=== PATIENT | female | born 1970 | race Caucasian/White ===

== ENCOUNTER 2017-11-24 14:33 | Inpatient (IN) | payer OTHER ==
[2017-11-24 14:39] VITALS: BMI 26.5
--- NOTE | 2017-11-24 14:41 | PDOC ---
Rapid Medical Evaluation Chief Complaint: Syncope/Near Syncope Time Seen by Provider: 11/24/17 14:40 Medical Evaluation: Allergies Allergy/AdvReac Type Severity Reaction Status Date / Time No Known Drug Allergies Allergy Verified 02/23/16 11:29 Vital Signs Temp Pulse Resp BP Pulse Ox 48 L 20 120/75 99 11/24/17 14:36 11/24/17 14:36 11/24/17 14:36 11/24/17 14:36 11/24/17 14:40 Pt presents to the ED: chest pain, syncope, nausea On brief exam: kevin at 47, diaphoretic and vomiting Pt ordered for: go directly to the ED Discharge Disposition - Diagnosis Chest pain - Referrals - Patient Instructions - Post Discharge Activity
[2017-11-24] MEDS ORDERED: ONDANSETRON 4 MG/2 ML VIAL ONE (15:00)
[2017-11-24] MEDS ORDERED: SODIUM CHLORIDE 0.9% 1000 ML INFUS.BAG IV STA (15:01)
[2017-11-24 15:19] LABS: BASO % 0.5 % (0-2.0); EOS % 1.6 % (0-4.5); HEMATOCRIT 40.7 % (32.4-45.2); HEMOGLOBIN 13.4 GM/dL (10.7-15.3); LYMPH % 39.7 % (8-40); MCH 28.5 pg (25.7-33.7); MCHC 32.8 g/dl (32.0-36.0); MEAN CELL VOLUME 86.9 fl (80-96); MEAN PLT VOLUME 9.6 fl (7.5-11.1); MONO % 5.2 % (3.8-10.2); PLATELET COUNT 449 K/MM3 (134-434); RBC 4.69 M/mm3 (3.60-5.2); RDW 15.4 % (11.6-15.6); WHITE BLOOD COUNT 10.2 K/mm3 (4.0-10.0)
--- NOTE | 2017-11-24 15:20 | PDOC ---
History of Present Illness - General Chief Complaint: Syncope/Near Syncope Stated Complaint: COLD/ FACE NUMBNESS Time Seen by Provider: 11/24/17 14:40 History Source: Patient Exam Limitations: No Limitations - History of Present Illness Initial Comments: 11/24/17 15:04 The patient is a 46F with no PMH who presents to the ED after having a near syncopal episode. The patient is with her who provides most of the history. The states that the patient and he were outside for 30-40 minutes today as the was doing outdoor work. He noticed that the patient 's face became very wrinkly "like an old woman" and he decided to bring her to the ED. He states that her face became less wrinkled as they arrived to the ED. In the ED, she began to feel lightheaded and became pale, then had a near syncopal episode and vomited once. She denies any CP, abd pain, SOB but says she 's weak and nauseous. Past History - Past Medical History Allergies/Adverse Reactions: Allergies Allergy/AdvReac Type Severity Reaction Status Date / Time No Known Drug Allergies Allergy Verified 02/23/16 11:29 Home Medications: Ambulatory Orders NK [No Known Home Medication] 11/24/17 Anemia: No Asthma: Yes Cancer: No Cardiac Disorders: No CVA: No COPD: No CHF: No Dementia: No Diabetes: Yes (? DIABETES) GI Disorders: No Disorders: No HTN: No Hypercholesterolemia: No Liver Disease: No Seizures: No Thyroid Disease: No - Suicide/Smoking/Psychosocial Hx Smoking History: Never smoked Have you smoked in the past 12 months: No Hx Alcohol Use: No Drug/Substance Use Hx: No Substance Use Type: None Hx Substance Use Treatment: No Review of Systems - Review of Systems Able to Perform ROS?: Yes Comments:: 11/24/17 15:38 GENERAL/CONSTITUTIONAL: No fever or chills. No weakness. HEAD, EYES, EARS, NOSE AND THROAT: No change in vision. No ear pain or discharge. No sore throat. GASTROINTESTINAL: Positive for nausea and vomiting. No diarrhea, constipation, or abdominal pain. GENITOURINARY: No dysuria, frequency, hematuria, or change in urination. CARDIOVASCULAR: No chest pain, palpitations, or lightheadedness. RESPIRATORY: No cough, wheezing, shortness of breath, or hemoptysis. MUSCULOSKELETAL: No joint or muscle swelling or pain. No neck or back pain. SKIN: No rash or lesions. NEUROLOGIC: No headache, numbness, tingling, weakness, loss of consciousness, or change in strength/sensation. ENDOCRINE: No increased thirst. No abnormal weight change. HEMATOLOGIC/LYMPHATIC: No anemia, easy bleeding, or history of blood clots. ALLERGIC/IMMUNOLOGIC: No hives or skin allergy. Is the patient limited Turkish proficient: No *Physical Exam - Vital Signs Last Vital Signs Temp Pulse Resp BP Pulse Ox 48 L 20 120/75 99 11/24/17 14:36 11/24/17 14:36 11/24/17 14:36 11/24/17 14:36 ED Treatment Course - LABORATORY CBC & Chemistry Diagram: 11/24/17 15:00 11/24/17 15:00 - RADIOLOGY Radiology Studies Ordered: Category Date Time Status HEAD CT WITHOUT CONTRAST [CT] Stat CT Scan 11/24/17 15:01 Ordered CHEST X-RAY PORTABLE* [RAD] Stat Radiology 11/24/17 15:01 Ordered Medical Decision Making - Medical Decision Making 11/24/17 16:13 The patient is a 46F with no PMH who presents to the ED after having an episode of facial spasm and near syncope with vomiting. I am concerned for a seizure/ neurologic pathology causing her presentation. She was hypothermic at 96.0F, septic protocol is being followed in addition to a head CT. Lactate of 3.8. CK of 851. Will hydrate the patient and page Dr. Andujar. 11/24/17 16:46 Dr. Bazzi has accepted admission for a [facility] bed. *DC/Admit/Observation/Transfer Diagnosis at time of Disposition: Chest pain - Discharge Dispostion Admit: Yes - Referrals Referrals: Master Andujar MD [Primary Care Provider] - - Patient Instructions - Post Discharge Activity
[2017-11-24] MEDS ORDERED: SODIUM CHLORIDE 0.9% 1000 ML INFUS.BAG IV ONE ×2 (15:23→16:16)
[2017-11-24] MEDS ORDERED: ONDANSETRON 4 MG/2 ML VIAL IVPUSH ONE (15:23)
[2017-11-24 15:47] LABS: INR 1.08 (0.82-1.09); PROTHROMBIN TIME (PATIENT) 12.2 SEC (9.98-11.88)
[2017-11-24 15:49] LABS: ACTIVATED PTT 25.4 SECONDS (26.9-34.4)
[2017-11-24 15:49] LABS: ALBUMIN 3.4 g/dl (3.4-5.0); ANION GAP 8 (8-16); BILIRUBIN,TOTAL 0.2 mg/dL (0.2-1.0); BLOOD UREA NITROGEN 16 mg/dL (7-18); CALCIUM 8.6 mg/dL (8.5-10.1); CHLORIDE 108 mmol/L (98-107); CO2 24 mmol/L (21-32); CREATININE 0.9 mg/dL (0.55-1.02); GLUCOSE,RANDOM 118 mg/dL (74-106); POTASSIUM 3.3 mmol/L (3.5-5.1); SGOT/AST 22 U/L (15-37); SGPT/ALT 19 U/L (12-78); SODIUM 140 mmol/L (136-145); TOT PROT 6.8 g/dl (6.4-8.2)
[2017-11-24 15:51] LABS: ALK PHOS 65 U/L (45-117)
--- NOTE | 2017-11-24 16:18 | PDOC ---
Attending Attestation - HPI HPI: 11/24/17 16:34 The patient is a 46 year old female with no significant PMH of who presents to the emergency department with generalized weakness and mild nausea s/p near syncopal episode on arrival. The patient's is at bedside and is providing the history. The patient's states he was outside with the patient for approximately 40 minutes when he noticed the patient's face started getting wrinkly "like a 61-year old woman" prompting their visit to the ER. The patient's reports the wrinkles on the face have resolved upon arrival. The patient's states the patient looked pale, felt lightheaded and had a near syncopal episode with an associated episode of nonbloody, nonbilious emesis on arrival. The patient's states the patient was moving all her extremities normally and had no postictal episode. The patient denies chest pain, shortness of breath, and headache. Denies fever, chills, nausea, vomit, diarrhea and constipation. Denies dysuria, frequency, urgency and hematuria. Allergies: NKA Past surgical history: None reported. Social history: No reported alcohol, cigarette or drug use. PCP: Dr. Andujar - Physicial Exam PE: 11/24/17 16:39 Vitals: Triage vital signs reviewed General Appearance: (+) Generalized weakness. well nourished, well developed Head: Atraumatic Eyes: Pupils equal reactive round, extraocular movement intact Neck: Supple; No nuchal rigidity Chest Wall: Nontender Cardiac: Regular rate and rhythm, no murmurs, no rubs, no gallops Lungs: Clear to auscultation bilateral, good air movement bilaterally Abdomen: Soft, nondistended, normal bowel sounds, nontender to palpation Extremities: Full range of motion to all extremities, no cyanosis, clubbing, or edema Skin: Warm and dry, no rashes or lesions, no rash, no petechiae Neuro: AOX3; Cranial Nerves 2-12 grossly intact, Strength intact to all extremities, Sensation intact to all extremities. Psych: Normal mood, normal affect - Medical Decision Making 11/24/17 16:40 The patient is a 46 year old female with no significant PMH of who presents to the emergency department with generalized weakness and mild nausea s/p syncopal episode on arrival. Plan Labs: Cardiac profile, CK index, CK MB, CMP, Lactic, UA ABG: Venous blood gas Cardio: EKG Meds: Zofran, Normal saline Microbio: Blood culture, Urine culture Respiratory: Oxygen therapy Nasal Cannula <Magdalene Conde - Last Filed: 11/24/17 16:44> - Resident Resident Name: YoshaiHector - ED Attending Attestation I have performed the following: I have examined & evaluated the patient, The case was reviewed & discussed with the resident, I agree w/resident's findings & plan, Exceptions are as noted - Medical Decision Making Patient with episode of syncope versus seizure. Prior to episode per her face became contorted/ ? red rash to face. Laboratory analysis significant for elevated lactic and elevated CK. This may be secondary to seizure-like activity, or it may be a vagal episode 2/2 cold anaphylaxis. Currently complaining of generalized weakness Head CT with no acute findings We'll hydrate and admitted to medicine for further management. 11/25/17 15:10 <Domenic Calderon - Last Filed: 11/25/17 15:29>
[2017-11-24 16:51] LABS: URINE APPEARANCE CLEAR; URINE BILIRUBIN NEGATIVE (NEGATIVE); URINE BLOOD 1+ (NEGATIVE); URINE COLOR LTYELLOW; URINE GLUCOSE (UA) NEGATIVE (NEGATIVE); URINE KETONE NEGATIVE (NEGATIVE); URINE NITRITE NEGATIVE (NEGATIVE); URINE PROTEIN NEGATIVE (NEGATIVE); URINE UROBILINOGEN NEGATIVE mg/dL (0.2-1.0)
[2017-11-24 17:04] LABS: URINE LEUK ESTERASE 1+ (NEGATIVE)
[2017-11-24 17:25] LABS: EPI CELLS RARE /HPF (FEW); URINE BACTERIA FEW /hpf (NONE SEEN); URINE HYALINE CAST 6 /lpf; URINE MUCUS RARE
[2017-11-24] MEDS ORDERED: ONDANSETRON 4 MG/2 ML VIAL IVPUSH PRN (22:38)
[2017-11-25] MEDS: DEXTROSE 5%-0.45% SALINE 1,000 ML IV SCH ×2 (01:00→22:06)
[2017-11-25 08:33] LABS: BASO % 0.4 % (0-2.0); EOS % 1.7 % (0-4.5); HEMATOCRIT 31.8 % (32.4-45.2); HEMOGLOBIN 10.3 GM/dL (10.7-15.3); LYMPH % 20.1 % (8-40); MCH 28.2 pg (25.7-33.7); MCHC 32.5 g/dl (32.0-36.0); MEAN CELL VOLUME 86.9 fl (80-96); MEAN PLT VOLUME 9.6 fl (7.5-11.1); MONO % 5.4 % (3.8-10.2); NEUT % 72.4 % (42.8-82.8); PLATELET COUNT 306 K/MM3 (134-434); RBC 3.66 M/mm3 (3.60-5.2); RDW 15.6 % (11.6-15.6); WHITE BLOOD COUNT 9.9 K/mm3 (4.0-10.0)
[2017-11-25 08:46] LABS: ALBUMIN 3.2 g/dl (3.4-5.0); ANION GAP 9 (8-16); BLOOD UREA NITROGEN 7 mg/dL (7-18); CHLORIDE 109 mmol/L (98-107); CO2 24 mmol/L (21-32); CREATININE 0.6 mg/dL (0.55-1.02); GLUCOSE,RANDOM 103 mg/dL (74-106); POTASSIUM 3.9 mmol/L (3.5-5.1); SGOT/AST 17 U/L (15-37); SGPT/ALT 17 U/L (12-78); SODIUM 142 mmol/L (136-145)
[2017-11-25 08:48] LABS: ALK PHOS 53 U/L (45-117); BILIRUBIN,TOTAL 0.3 mg/dL (0.2-1.0)
--- NOTE | 2017-11-25 09:29 | CON.CARD ---
Consult Consult Specialty:: Cardiology Referred by:: Dr. Bazzi Reason for Consultation:: Near syncope - History of Present Illness Chief Complaint: nausea, presyncope History of Present Illness: 46F with no PMH admitted through the ER with a near syncopal episode. History obtained from patient and review of EMR. Patient reports being outdoors in the cold with her when she began to feel her face swelling with what she describes as "red blotches" or hives. She was then brought to ER and as per ER documentation was bradycardic, c/o nausea and had a near syncopal episode. The initial ER report documented chest pain, which patient now denies. She denies recent URI or illness. Denies prior cardiac history. Patient states that she had a similar episode of facial "redness" in cold weather in past, but not to same degree with associated swelling. Denies use of new soap, cosmetics or shampoo. Currently denies chest pain, palpitations or SOB. Of note, CPK was elevated as was lactate. 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: Alzheimer's, CVA, Dementia, Migraine, Multiple Sclerosis, Peripheral Neuropathy, Parkinson's, Seizure, Syncope, TIA, Vertigo, Other Cardio/Vascular: No: AFIB, Aneurysm, Aortic Insufficiency, Aortic Stenosis, CAD , CHF, Deep Vein Thrombosis, HTN, Hyperlipdemia, [place], Mitral Insufficiency, Mitral Stenosis, Murmur, Pulmonary Hypertension, Other Pulmonary: No: Asthma, Bronchitis, Cancer, COPD, O2 Dependent, Pneumonia, Previously Intubated, Pulmonary Embolus, Pulmonary Fibrosis, Sleep Apnea, Other Gastrointestinal: No: Ascites, Cancer, Constipation, Crohn's Disease, Diverticulitis, Diverticulosis, Esophageal Varices, Gastritis, GERD, GI Bleed, Hemorrhoids, Hiatal Hernia, Inflamatory Bowel Disease, Irritable Bowel Disease, Pancreatitis, Peptic Ulcer Disease, Ulcerative Colitis, Other Hepatobiliary: No: Cirrhosis, Cholelithiasis, Cholecystitis, Choledocholithiasis , Hepatitis A, Hepatitis B, Hepatitis C, Other Renal/: No: Renal Failure, Renal Inusuff, BPH, Cancer, Hematuria, Hemodialysis , Neurogenic Bladder, Renal Calculi, UTI, Other Reproductive: No: Ectopic , Endometriosis, Fibroids, PID, Polycystic Ovary Syndrome, Postmenopausal, Other ...LMP: 02/13/16 Heme/Onc: No: Anemia, B12 Deficiency, Bleeding Disorder, Cancer, Current Chemotherapy, Current Radiation Therapy, Hemochromatosis, Hypercoaguable State, Myeloproliferative Synd, Sickle Cell Disease, Sickle Cell Trait, Thrombocytopenia, Other Infectious Disease: No: AIDS, C-Diff, Herpes Zoster, HIV, MRSA, STD's, Tuberculosis, VREF, Other Psych: No: Addictions, Anxiety, Bipolar, Depression, Panic, Psychosis, Schizophrenia, Other Musculoskeletal: No: Bursitis, Chronic low back pain, Hemiparesis, Hemiplegia, Osteoarthritis, Paraplegia, Other Rheumatology: No: Fibromyalgia, Gout, Lupus, Rheumatoid Arthritis, Sarcoidosis, Vasculitis, Other ENT: No: Allergic Rhinitis, Sinusitis, Other Endocrine: No: [place]'s Disease, [place]'s Disease, Diabetes Insipidus, Diabetes Mellitus, Hyperparathyroidism, Hyperthyroidism, Hypothyroidism, Osteopenia, SIADH, Other Dermatology: No: Basal Cell, Cellulitis, Eczema, Melanoma, Psoriasis, Squamous Cell, Other - Past Surgical History Past Surgical History: No: None, AAA Repair, AICD, Amputation, Appendectomy, Arthrosocopy, AV Fistula/Graft, Bariatric Surgery, Breast Biopsy, Bypass, CABG, Carotid Endarterectomy, Cataract Removal, Cholecystectomy, Colectomy, Colonoscopy, Colostomy, Craniotomy, , Cystectomy, Hernia Repair, Hysterectomy, Ileal Conduit, Ileosotomy, Joint Replacement, Kidney Transplant, Laminectomy, Liver Transplant, Mastectomy, Nephrectomy, Oopherectomy, Orchiectomy, Permanent Pacemaker, Prostatectomy, Splenectomy, Stent, Thoracotomy , TURP, Tonsillectomy, Tubal Ligation, Upper Endoscopy, Valve Replacement, Vasectomy, Vein Stripping/Ligation - Alcohol/Substance Use Hx Alcohol Use: No - Smoking History Smoking history: Never smoked Have you smoked in the past 12 months: No - Social History Usual Living Arrangement: With Spouse History of Recent Travel: No Home Medications - Allergies Allergies/Adverse Reactions: Allergies Allergy/AdvReac Type Severity Reaction Status Date / Time No Known Drug Allergies Allergy Verified 02/23/16 11:29 - Home Medications Home Medications: Ambulatory Orders NK [No Known Home Medication] 11/24/17 Family Disease History - Family Disease History Family History: Unremarkable (not pertinent to this presentation) Review of Systems - Review of Systems Constitutional: reports: No Symptoms Eyes: reports: No Symptoms HENT: reports: No Symptoms Neck: reports: No Symptoms Cardiovascular: reports: No Symptoms Respiratory: reports: No Symptoms Gastrointestinal: reports: No Symptoms Genitourinary: reports: No Symptoms Breasts: reports: No Symptoms Reported Musculoskeletal: reports: No Symptoms Integumentary: reports: No Symptoms Neurological: reports: No Symptoms Endocrine: reports: No Symptoms Hematology/Lymphatic: reports: No Symptoms Psychiatric: reports: No Symptoms - Risk Factors Known Risk Factors: No: Age, Diabetes Mellitus, Family History, Gender, Hypercholesterolemia, Hypertension, Physical Inactivity, Prior GA /Emb Stroke, Race, Smoking, Other Vital Signs: Vital Signs Temperature 99.1 F 11/25/17 08:00 Pulse Rate 79 11/25/17 08:00 Respiratory Rate 16 11/25/17 08:00 Blood Pressure 125/77 11/25/17 08:00 O2 Sat by Pulse Oximetry (%) 100 11/24/17 23:00 Constitutional: Yes: No Distress, Calm Eyes: Yes: Conjunctiva Clear, EOM Intact HENT: Yes: Atraumatic, Normocephalic Neck: Yes: Supple, Trachea Midline Respiratory: Yes: Regular, CTA Bilaterally Gastrointestinal: Yes: Soft Cardiovascular: Yes: Regular Rate and Rhythm JVD: No PMI: Non-Displaced Heart Sounds: Yes: S1, S2 Edema: No Peripheral Pulses WNL: Yes Integumentary: Yes: WNL Neurological: Yes: WNL, Alert, Oriented ...Motor Strength: WNL Psychiatric: Yes: WNL, Alert, Oriented - Other Data Labs, Other Data: CBC, BMP 11/25/17 06:41 11/25/17 06:41 INR, PTT INR 1.08 (0.82-1.09) 11/24/17 15:12 Troponin, BNP 11/24/17 11/25/17 15:00 05:00 Troponin I < 0.02 < 0.02 Troponin, BNP 11/24/17 11/25/17 15:00 05:00 Troponin I < 0.02 < 0.02 Microbiology Laboratory Tests 11/24/17 11/24/17 11/24/17 15:00 15:00 15:00 WBC Hgb Plt Count Sodium Potassium BUN Creatinine Random Glucose Lactic Acid 3.8 H* Calcium Total Bilirubin AST ALT Alkaline Phosphatase Creatine Kinase 851 H Troponin I < 0.02 Total Protein Albumin Serum , Qual Negative Urine Blood Urine Urobilinogen Ur Leukocyte Esterase 11/24/17 11/24/17 11/25/17 16:35 18:57 05:00 WBC Hgb Plt Count Sodium Potassium BUN Creatinine Random Glucose Lactic Acid 2.8 H* Calcium Total Bilirubin AST ALT Alkaline Phosphatase Creatine Kinase 480 H Troponin I Total Protein Albumin Serum , Qual Urine Blood 1+ H Urine Urobilinogen Negative Ur Leukocyte Esterase 1+ H 11/25/17 11/25/17 06:41 06:41 WBC 9.9 Hgb 10.3 L D Plt Count 306 D Sodium 142 Potassium 3.9 BUN 7 D Creatinine 0.6 D Random Glucose 103 Lactic Acid Calcium 8.0 L Total Bilirubin 0.3 D AST 17 D ALT 17 Alkaline Phosphatase 53 Creatine Kinase Troponin I Total Protein 6.0 L Albumin 3.2 L Serum , Qual Urine Blood Urine Urobilinogen Ur Leukocyte Esterase Microbiology Laboratory Tests 11/24/17 16:35 Urine Blood 1+ H Ur Leukocyte Esterase 1+ H NSR 91bpm. Incomplete RBBB. NSST changes Echo: Pending Imaging - Results Chest X-ray: Image Reviewed Cat Scan: Image Reviewed EKG: Image Reviewed Problem List - Problems (1) Pre-syncope Code(s): R55 - SYNCOPE AND COLLAPSE (2) Lactate blood increase Code(s): R79.89 - OTHER SPECIFIED ABNORMAL FINDINGS OF BLOOD CHEMISTRY (3) Elevated CPK Code(s): R74.8 - ABNORMAL LEVELS OF OTHER SERUM ENZYMES Assessment/Plan IMP: Presyncope Elevated lactate of unclear etiology Elevated CPK Differential is broad and includes vasovagal episode (unlcear trigger), occult infection (?UTI), dehydration. Less likely arrhythmia or ischemia. Doubt PE. REC: Hydrate Check Orthostatics Continue telemetry Carotid US and Echo Follow cultures Possible ETT on Monday. Agree that she requires further inpatient evaluation of etiology of this episode and further diagnostics to ascertain etiology of elevated lactate, CK as well as assessment of LV function.
[2017-11-25] MEDS ORDERED: PT OWN MED DRAWER 7, Y5N ONE (10:11)
[2017-11-25] MEDS: ASPIRIN COATED 81 MG TABLET.EC PO SCH (10:20)
[2017-11-25] MEDS: HEPARIN NA (PORCINE) 5,000 UNITS/ML 1ML VIAL SQ SCH ×2 (10:20→21:40)
--- NOTE | 2017-11-25 13:13 | HP ---
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, CVA, Dementia, Migraine, Multiple Sclerosis, Peripheral Neuropathy, Parkinson's, Seizure, Syncope, TIA, Vertigo, Other Cardiovascular: No: AFIB, Aneurysm, Aortic Insufficiency, Aortic Stenosis, CAD, CHF, Deep Vein Thrombosis, HTN, Hyperlipdemia, [place], Mitral Insufficiency, Mitral Stenosis, Murmur, Pulmonary Hypertension, Other Pulmonary: No: Asthma, Bronchitis, Cancer, COPD, O2 Dependent, Pneumonia, Previously Intubated, Pulmonary Embolus, Pulmonary Fibrosis, Sleep Apnea, Other Gastrointestinal: No: Ascites, Cancer, Constipation, Crohn's Disease, Diverticulitis, Diverticulosis, Esophageal Varices, Gastritis, GERD, GI Bleed, Hemorrhoids, Hiatal Hernia, Inflamatory Bowel Disease, Irritable Bowel Disease, Pancreatitis, Peptic Ulcer Disease, Ulcerative Colitis, Other Hepatobiliary: No: Cirrhosis, Cholelithiasis, Cholecystitis, Choledocholithiasis , Hepatitis A, Hepatitis B, Hepatitis C, Other Renal/: No: Renal Failure, Renal Inusuff, BPH, Cancer, Hematuria, Hemodialysis , Neurogenic Bladder, Renal Calculi, UTI, Other ...LMP: 02/13/16 Heme/Onc: No: Anemia, B12 Deficiency, Bleeding Disorder, Cancer, Current Chemotherapy, Current Radiation Therapy, Hemochromatosis, Hypercoaguable State, Myeloproliferative Synd, Sickle Cell Disease, Sickle Cell Trait, Thrombocytopenia, Other Infectious Disease: No: AIDS, C-Diff, Herpes Zoster, HIV, MRSA, STD's, Tuberculosis, VREF, Other Psych: No: Addictions, Anxiety, Bipolar, Depression, Panic, Psychosis, Schizophrenia, Other Musculoskeletal: No: Bursitis, Chronic low back pain, Hemiparesis, Hemiplegia, Osteoarthritis, Paraplegia, Other Rheumatology: No: Fibromyalgia, Gout, Lupus, Rheumatoid Arthritis, Sarcoidosis, Vasculitis, Other ENT: No: Allergic Rhinitis, Sinusitis, Other Endocrine: No: Karthikeyan's Disease, Mac[place]'s Disease, Diabetes Insipidus, Diabetes Mellitus, Hyperparathyroidism, Hyperthyroidism, Hypothyroidism, Osteopenia, SIADH, Other Dermatology: No: Basal Cell, Cellulitis, Eczema, Melanoma, Psoriasis, Squamous Cell, Other - Past Surgical History Past Surgical History: No: None, AAA Repair, AICD, Amputation, Appendectomy, Arthrosocopy, AV Fistula/Graft, Bariatric Surgery, Breast Biopsy, Bypass, CABG, Carotid Endarterectomy, Cataract Removal, Cholecystectomy, Colectomy, Colonoscopy, Colostomy, Craniotomy, , Cystectomy, Hernia Repair, Hysterectomy, Ileal Conduit, Ileosotomy, Joint Replacement, Kidney Transplant, Laminectomy, Liver Transplant, Mastectomy, Nephrectomy, Oopherectomy, Orchiectomy, Permanent Pacemaker, Prostatectomy, Splenectomy, Stent, Thoracotomy , TURP, Tonsillectomy, Tubal Ligation, Upper Endoscopy, Valve Replacement, Vasectomy, Vein Stripping/Ligation - Smoking History Smoking history: Never smoked Have you smoked in the past 12 months: No - Alcohol/Substance Use Hx Alcohol Use: No - Social History History of Recent Travel: No Home Medications - Allergies Allergies/Adverse Reactions: Allergies Allergy/AdvReac Type Severity Reaction Status Date / Time No Known Drug Allergies Allergy Verified 02/23/16 11:29 - Home Medications Home Medications: Ambulatory Orders NK [No Known Home Medication] 11/24/17 Physical Examination Vital Signs: Vital Signs Temperature 99.1 F 11/25/17 08:00 Pulse Rate 79 11/25/17 08:00 Respiratory Rate 16 11/25/17 08:00 Blood Pressure 125/77 11/25/17 08:00 O2 Sat by Pulse Oximetry (%) 98 11/25/17 09:00 Labs: CBC, BMP 11/25/17 06:41 11/25/17 06:41
--- NOTE | 2017-11-25 13:31 | EKG ---
Test Reason : Blood Pressure : / mmHG Vent. Rate : 091 BPM Atrial Rate : 091 BPM P-R Int : 130 ms QRS Dur : 090 ms QT Int : 380 ms P-R-T Axes : 064 158 055 degrees QTc Int : 467 ms NORMAL SINUS RHYTHM RIGHT AXIS DEVIATION ABNORMAL ECG WHEN COMPARED WITH ECG OF 27-JAN-2005 07:53, QRS AXIS SHIFTED RIGHT NONSPECIFIC T WAVE ABNORMALITY NO LONGER EVIDENT IN LATERAL LEADS Confirmed by NIMESH LARSEN MD ([id number]) on 11/25/2017 1:31:03 PM Referred By: Confirmed By:NIMESH LARSEN MD
[2017-11-25] MEDS: LEVOFLOXACIN 500 MG IVPB 500 MG/100 ML BAG IVPB SCH (14:16)
--- NOTE | 2017-11-25 16:38 | CONSULT ---
Consult - text type - Consultation Consultation Note: NEUROLOGY CONSULTATION is greatly appreciated: Events reviewed, patient examined. Discussed with RN and Dr. Ramirez. 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 Over the last few years she has noticed episodes of palpitations, especially with exertion, and more recently has has exertional dyspnea. Yesterday she was outside in the cold for 40 mins when her noted red blotches on her face and took her inside. The patient has had this before with cold exposure. They came to the ER to evaluate these skin changes and, in the ER the patient developed lightheadedness and felt as if she might faint but did not. This was associated with a documented pulse of 44, BP of 120/75 and temp of 96. WBC=10.2 down to 9.9 today. Platelets were 449k (306k today). CK in ER was 851 IU down to [address] of head (reviewed): Normal Carotid duplex: No plaque seen but high frequency flow noted at the left ICVA. Today Pt feels fine but had an asymptomatic sinus tachyarrhythmia to 155 BPM with BP =160/90 SIMRAN: Normal. No bruits. NEURO: MS/speech: Normal CN II-XII: normal Motor: No drift or tremor. Normal strength, tone, bulk and reflexes. Toes downgoing Coord: No FTN dystaxia Sensory: Normal Gait: Normal IMP: Normal Neurological Exam. Presyncope due to Bradycardia. Tachy/kevin syndrome. R/O cardiomyopathy. R/O Carotid dissection. SUGGEST: MR Angio of carotids. Check orthostatic BPs. Cardiac w/u as per Dr. Ramirez likely to include echocardiogram and stress test. Follow CK and platelet counts. Thank you very much, Emmett Piña MD
--- NOTE | 2017-11-25 17:48 | CON.ID ---
Consult Consult Specialty:: Infectious Disease Reason for Consultation:: r/o UTI, Elevated lactic acid - History of Present Illness History of Present Illness: 46 y.o. female who denies having a past medical history presented to the ER due to sudden generalized weakness, dizziness, and facial erythema/ swelling and "wrinkling" while she was outside. Pt denies LOC, headache, seizure ,chest pain or shortness of breath. She denies fever or chills or any other specific symptoms. She states by the time she came to the ER her facial swelling had resolved. As per pt she had 2 episodes of facial erythema/ swelling but much milder form in the past due to unclear reasons. In the ER she was noted to have a slightly abnormal u/a and an elevated lactic acid level. Currently she states she is feeling well. Denies dysuria/hematuria/suprapubic or flank pain. - History Source History Provided By: Patient Limitations to Obtaining History: No Limitations - Past Medical History [employer] SAL[employer]: No: Alzheimer's, CVA, Dementia, Migraine, Multiple Sclerosis, Peripheral Neuropathy, Parkinson's, Seizure, Syncope, TIA, Vertigo, Other Cardio/Vascular: No: AFIB, Aneurysm, Aortic Insufficiency, Aortic Stenosis, CAD , CHF, Deep Vein Thrombosis, HTN, Hyperlipdemia, OH, Mitral Insufficiency, Mitral Stenosis, Murmur, Pulmonary Hypertension, Other Pulmonary: No: Asthma, Bronchitis, Cancer, COPD, O2 Dependent, Pneumonia, Previously Intubated, Pulmonary Embolus, Pulmonary Fibrosis, Sleep Apnea, Other Gastrointestinal: No: Ascites, Cancer, Constipation, Crohn's Disease, Diverticulitis, Diverticulosis, Esophageal Varices, Gastritis, GERD, GI Bleed, Hemorrhoids, Hiatal Hernia, Inflamatory Bowel Disease, Irritable Bowel Disease, Pancreatitis, Peptic Ulcer Disease, Ulcerative Colitis, Other Hepatobiliary: No: Cirrhosis, Cholelithiasis, Cholecystitis, Choledocholithiasis , Hepatitis A, Hepatitis B, Hepatitis C, Other Renal/: No: Renal Failure, Renal Inusuff, BPH, Cancer, Hematuria, Hemodialysis , Neurogenic Bladder, Renal Calculi, UTI, Other Reproductive: Yes: Fibroids, Other (? cyst s/p biopsy without abnormal findings done 8 months ago) ...LMP: 02/13/16 Infectious Disease: No: AIDS, C-Diff, Herpes Zoster, HIV, MRSA, STD's, Tuberculosis, VREF, Other Psych: No: Addictions, Anxiety, Bipolar, Depression, Panic, Psychosis, Schizophrenia, Other Musculoskeletal: No: Bursitis, Chronic low back pain, Hemiparesis, Hemiplegia, Osteoarthritis, Paraplegia, Other Rheumatology: No: Fibromyalgia, Gout, Lupus, Rheumatoid Arthritis, Sarcoidosis, Vasculitis, Other ENT: No: Allergic Rhinitis, Sinusitis, Other Endocrine: No: Aston's Disease, Macario's Disease, Diabetes Insipidus, Diabetes Mellitus, Hyperparathyroidism, Hyperthyroidism, Hypothyroidism, Osteopenia, SIADH, Other Dermatology: No: Basal Cell, Cellulitis, Eczema, Melanoma, Psoriasis, Squamous Cell, Other - Past Surgical History Past Surgical History: No: None, AAA Repair, AICD, Amputation, Appendectomy, Arthrosocopy, AV Fistula/Graft, Bariatric Surgery, Breast Biopsy, Bypass, CABG, Carotid Endarterectomy, Cataract Removal, Cholecystectomy, Colectomy, Colonoscopy, Colostomy, Craniotomy, , Cystectomy, Hernia Repair, Hysterectomy, Ileal Conduit, Ileosotomy, Joint Replacement, Kidney Transplant, Laminectomy, Liver Transplant, Mastectomy, Nephrectomy, Oopherectomy, Orchiectomy, Permanent Pacemaker, Prostatectomy, Splenectomy, Stent, Thoracotomy , TURP, Tonsillectomy, Tubal Ligation, Upper Endoscopy, Valve Replacement, Vasectomy, Vein Stripping/Ligation - Alcohol/Substance Use Hx Alcohol Use: No - Smoking History Smoking history: Never smoked Have you smoked in the past 12 months: No - Social History Usual Living Arrangement: With Spouse History of Recent Travel: No Home Medications - Allergies Allergies/Adverse Reactions: Allergies Allergy/AdvReac Type Severity Reaction Status Date / Time No Known Drug Allergies Allergy Verified 02/23/16 11:29 - Home Medications Home Medications: Ambulatory Orders NK [No Known Home Medication] 11/24/17 Family Disease History - Family Disease History Family Disease History: Diabetes: Mother (?ovarian tumor) Review of Systems - Review of Systems Constitutional: reports: No Symptoms Eyes: reports: No Symptoms HENT: reports: No Symptoms Neck: reports: No Symptoms Cardiovascular: reports: No Symptoms Respiratory: reports: No Symptoms Gastrointestinal: reports: No Symptoms Genitourinary: reports: No Symptoms Breasts: reports: No Symptoms Reported Musculoskeletal: reports: No Symptoms Integumentary: reports: No Symptoms Neurological: reports: No Symptoms Endocrine: reports: No Symptoms Hematology/Lymphatic: reports: No Symptoms Psychiatric: reports: No Symptoms Physical Exam Vital Signs: Vital Signs Temperature 98.8 F 11/25/17 14:00 Pulse Rate 87 11/25/17 14:00 Respiratory Rate 16 11/25/17 08:00 Blood Pressure 140/79 11/25/17 14:00 O2 Sat by Pulse Oximetry (%) 98 11/25/17 09:00 Constitutional: Yes: No Distress, Calm Eyes: Yes: WNL HENT: Yes: Atraumatic Neck: Yes: Supple Cardiovascular: Yes: Regular Rate and Rhythm Respiratory: Yes: CTA Bilaterally Gastrointestinal: Yes: Normal Bowel Sounds, Soft Renal/: Yes: WNL Musculoskeletal: Yes: WNL Extremities: Yes: WNL Integumentary: Yes: WNL Neurological: Yes: Alert, Oriented Psychiatric: Yes: Alert Labs: CBC, BMP 11/25/17 06:41 11/25/17 06:41 Laboratory Tests 11/24/17 11/24/17 11/24/17 15:00 15:00 15:00 WBC 10.2 H RBC 4.69 Hgb 13.4 Hct 40.7 MCV 86.9 MCH 28.5 MCHC 32.8 RDW 15.4 Plt Count 449 H MPV 9.6 Neutrophils % 53.0 Lymphocytes % 39.7 Monocytes % 5.2 Eosinophils % 1.6 Basophils % 0.5 PT with INR INR PTT (Actin FS) Sodium 140 Potassium 3.3 L Chloride 108 H Carbon Dioxide 24 Anion Gap 8 BUN 16 Creatinine 0.9 Creat Clearance w eGFR > 60 Random Glucose 118 H Lactic Acid 3.8 H* Calcium 8.6 Total Bilirubin 0.2 AST 22 ALT 19 Alkaline Phosphatase 65 Creatine Kinase 851 H Creatine Kinase Index 0.1 CK-MB (CK-2) 1.315 Troponin I < 0.02 Total Protein 6.8 Albumin 3.4 Serum , Qual Urine Color Urine Appearance Urine pH Ur Specific Ponder Urine Protein Urine Glucose (UA) Urine Ketones Urine Blood Urine Nitrite Urine Bilirubin Urine Urobilinogen Ur Leukocyte Esterase Urine WBC (Auto) Urine RBC (Auto) Ur Epithelial Cells Urine Bacteria Hyaline Casts Urine Mucus Blood Type Antibody Screen 11/24/17 11/24/17 11/24/17 15:00 15:00 15:12 WBC RBC Hgb Hct MCV MCH MCHC RDW Plt Count MPV Neutrophils % Lymphocytes % Monocytes % Eosinophils % Basophils % PT with INR 12.20 H INR 1.08 PTT (Actin FS) 25.4 L Sodium Potassium Chloride Carbon Dioxide Anion Gap BUN Creatinine Creat Clearance w eGFR Random Glucose Lactic Acid Calcium Total Bilirubin AST ALT Alkaline Phosphatase Creatine Kinase Creatine Kinase Index CK-MB (CK-2) Troponin I Total Protein Albumin Serum , Qual Negative Urine Color Urine Appearance Urine pH Ur Specific Ponder Urine Protein Urine Glucose (UA) Urine Ketones Urine Blood Urine Nitrite Urine Bilirubin Urine Urobilinogen Ur Leukocyte Esterase Urine WBC (Auto) Urine RBC (Auto) Ur Epithelial Cells Urine Bacteria Hyaline Casts Urine Mucus Blood Type A POSITIVE Antibody Screen Negative 11/24/17 11/24/17 11/25/17 16:35 18:57 05:00 WBC RBC Hgb Hct MCV MCH MCHC RDW Plt Count MPV Neutrophils % Lymphocytes % Monocytes % Eosinophils % Basophils % PT with INR INR PTT (Actin FS) Sodium Potassium Chloride Carbon Dioxide Anion Gap BUN Creatinine Creat Clearance w eGFR Random Glucose Lactic Acid 2.8 H* Calcium Total Bilirubin AST ALT Alkaline Phosphatase Creatine Kinase 480 H Creatine Kinase Index 0.2 CK-MB (CK-2) < 1.000 Troponin I < 0.02 Total Protein Albumin Serum , Qual Urine Color Ltyellow Urine Appearance Clear Urine pH 6.0 Ur Specific Ponder 1.010 Urine Protein Negative Urine Glucose (UA) Negative Urine Ketones Negative Urine Blood 1+ H Urine Nitrite Negative Urine Bilirubin Negative Urine Urobilinogen Negative Ur Leukocyte Esterase 1+ H Urine WBC (Auto) 2 Urine RBC (Auto) 2 Ur Epithelial Cells Rare Urine Bacteria Few Hyaline Casts 6 Urine Mucus Rare Blood Type Antibody Screen 11/25/17 11/25/17 11/25/17 06:41 06:41 14:30 WBC 9.9 RBC 3.66 D Hgb 10.3 L D Hct 31.8 L D MCV 86.9 MCH 28.2 MCHC 32.5 RDW 15.6 Plt Count 306 D MPV 9.6 Neutrophils % 72.4 D Lymphocytes % 20.1 D Monocytes % 5.4 Eosinophils % 1.7 Basophils % 0.4 PT with INR INR PTT (Actin FS) Sodium 142 Potassium 3.9 Chloride 109 H Carbon Dioxide 24 Anion Gap 9 BUN 7 D Creatinine 0.6 D Creat Clearance w eGFR > 60 Random Glucose 103 Lactic Acid 2.7 H* Calcium 8.0 L Total Bilirubin 0.3 D AST 17 D ALT 17 Alkaline Phosphatase 53 Creatine Kinase Creatine Kinase Index CK-MB (CK-2) Troponin I Total Protein 6.0 L Albumin 3.2 L Serum , Qual Urine Color Urine Appearance Urine pH Ur Specific Ponder Urine Protein Urine Glucose (UA) Urine Ketones Urine Blood Urine Nitrite Urine Bilirubin Urine Urobilinogen Ur Leukocyte Esterase Urine WBC (Auto) Urine RBC (Auto) Ur Epithelial Cells Urine Bacteria Hyaline Casts Urine Mucus Blood Type Antibody Screen Imaging - Results Chest X-ray: Report Reviewed Problem List - Problems (1) Elevated CPK Code(s): R74.8 - ABNORMAL LEVELS OF OTHER SERUM ENZYMES (2) Lactate blood increase Code(s): R79.89 - OTHER SPECIFIED ABNORMAL FINDINGS OF BLOOD CHEMISTRY (3) Pre-syncope Code(s): R55 - SYNCOPE AND COLLAPSE Assessment/Plan 46 y.o. female with no significant PMH presenting with c/o generalized weakness , pre-syncope and episode of facial swelling noted to have elevated lactic acid , CPK r/o UTI -- f/u urine culture sent -- pt wishes to defer antibiotic treatment until culture results available -- recommend continued lactic acid monitoring -- undergoing cardiology/neurology evaluation currently afebrile, vitals stable will f/u
[2017-11-25] MEDS: ATORVASTATIN CA 40 MG TABLET (FP) PO SCH (21:40)
[2017-11-26 07:19] LABS: BASO % 0.5 % (0-2.0); EOS % 2.3 % (0-4.5); HEMATOCRIT 32.1 % (32.4-45.2); HEMOGLOBIN 10.6 GM/dL (10.7-15.3); LYMPH % 26.4 % (8-40); MCH 28.7 pg (25.7-33.7); MCHC 33.1 g/dl (32.0-36.0); MEAN CELL VOLUME 86.7 fl (80-96); MEAN PLT VOLUME 9.6 fl (7.5-11.1); MONO % 6.8 % (3.8-10.2); PLATELET COUNT 342 K/MM3 (134-434); RDW 15.7 % (11.6-15.6); WHITE BLOOD COUNT 7.4 K/mm3 (4.0-10.0)
[2017-11-26 08:50] LABS: ALBUMIN 3.4 g/dl (3.4-5.0); ANION GAP 7 (8-16); BILIRUBIN,TOTAL 0.3 mg/dL (0.2-1.0); BLOOD UREA NITROGEN 9 mg/dL (7-18); CALCIUM 8.3 mg/dL (8.5-10.1); CHLORIDE 105 mmol/L (98-107); CO2 27 mmol/L (21-32); CREATININE 0.7 mg/dL (0.55-1.02); GLUCOSE,RANDOM 107 mg/dL (74-106); POTASSIUM 3.5 mmol/L (3.5-5.1); SGOT/AST 12 U/L (15-37); SGPT/ALT 17 U/L (12-78); SODIUM 139 mmol/L (136-145); TOT PROT 6.7 g/dl (6.4-8.2)
[2017-11-26 08:51] LABS: ALK PHOS 58 U/L (45-117)
--- NOTE | 2017-11-26 09:52 | PN ---
Progress Note, Physician Chief Complaint: now complaints of generalized sensation of "poor circulation" Episode of sinus tach on tele yesterday Appreciate neuro and ID input - Current Medication List Current Medications: Active Medications Aspirin (Ecotrin -) 81 mg PO DAILY [facility] Last Admin: 11/25/17 10:20 Dose: 81 mg Atorvastatin Calcium (Lipitor -) 40 mg PO HS [facility] Last Admin: 11/25/17 21:40 Dose: 40 mg Heparin Sodium (Porcine) (Heparin -) 5,000 unit SQ BID [facility] Last Admin: 11/25/17 21:40 Dose: 5,000 unit Dextrose/Sodium Chloride (D5-1/2ns -) 1,000 mls @ 75 mls/hr IV ASDIR [facility] Last Admin: 11/25/17 22:06 Dose: 75 mls/hr Levofloxacin (Levaquin 500 Mg Premixed Ivpb -) 500 mg in 100 mls @ 100 mls/hr IVPB DAILY [facility] Last Admin: 11/25/17 14:16 Dose: Not Given Ondansetron HCl (Zofran Injection) 4 mg IVPUSH Q6H PRN PRN Reason: NAUSEA AND/OR VOMITING - Objective Vital Signs: Vital Signs Temperature 98.6 F 11/26/17 07:30 Pulse Rate 77 11/26/17 07:30 Respiratory Rate 16 11/26/17 07:30 Blood Pressure 112/64 11/26/17 07:30 O2 Sat by Pulse Oximetry (%) 100 11/25/17 20:27 Constitutional: Yes: No Distress Eyes: Yes: Conjunctiva Clear Cardiovascular: Yes: Regular Rate and Rhythm Respiratory: Yes: CTA Bilaterally Gastrointestinal: Yes: Soft Musculoskeletal: Yes: WNL Extremities: Yes: WNL Edema: No Peripheral Pulses WNL: Yes Neurological: Yes: Alert, Oriented ...Motor Strength: WNL Labs: CBC, BMP 11/26/17 06:17 11/26/17 06:17 INR, PTT INR 1.08 (0.82-1.09) 11/24/17 15:12 Laboratory Tests 11/24/17 11/25/17 11/26/17 15:00 05:00 06:17 WBC 7.4 Hgb 10.6 L Plt Count 342 Sodium Potassium BUN Creatinine Lactic Acid Calcium Total Bilirubin AST ALT Alkaline Phosphatase Troponin I < 0.02 < 0.02 11/26/17 11/26/17 06:17 06:17 WBC Hgb Plt Count Sodium 139 Potassium 3.5 BUN 9 D Creatinine 0.7 Lactic Acid 1.4 Calcium 8.3 L Total Bilirubin 0.3 AST 12 L D ALT 17 Alkaline Phosphatase 58 Troponin I - ....Imaging EKG: Image Reviewed Problem List - Problems (1) Pre-syncope Code(s): R55 - SYNCOPE AND COLLAPSE (2) Lactate blood increase Code(s): R79.89 - OTHER SPECIFIED ABNORMAL FINDINGS OF BLOOD CHEMISTRY (3) Elevated CPK Code(s): R74.8 - ABNORMAL LEVELS OF OTHER SERUM ENZYMES Assessment/Plan IMP: Presyncope with episodes of sinus bradycardia and sinus tachycardia Elevated lactate of unclear etiology, now improved Elevated CPK, also improving Differential is broad and includes vasovagal episode (unlcear trigger), occult infection (?UTI), dehydration. Less likely arrhythmia or ischemia. Doubt PE; endocrine etiologies such as thyroid disease and pheo should be ruled out REC: Continue telemetry Echo MRA neck to f/u on mildly elevated doppler velocities on US Follow cultures ETT on Monday
[2017-11-26] MEDS: ASPIRIN COATED 81 MG TABLET.EC PO SCH (10:13)
[2017-11-26] MEDS: HEPARIN NA (PORCINE) 5,000 UNITS/ML 1ML VIAL SQ SCH ×2 (10:13→22:37)
[2017-11-26] MEDS: LEVOFLOXACIN 500 MG IVPB 500 MG/100 ML BAG IVPB SCH ×2 (12:02→14:35)
--- NOTE | 2017-11-26 12:32 | PN ---
Progress Note, Physician History of Present Illness: Pt states she feels well. Remains afebrile, denies dysuria/chills/pain. No other specific complaints. - Current Medication List Current Medications: Active Medications Aspirin (Ecotrin -) 81 mg PO DAILY [facility] Last Admin: 11/26/17 10:13 Dose: 81 mg Atorvastatin Calcium (Lipitor -) 40 mg PO HS [facility] Last Admin: 11/25/17 21:40 Dose: 40 mg Heparin Sodium (Porcine) (Heparin -) 5,000 unit SQ BID [facility] Last Admin: 11/26/17 10:13 Dose: 5,000 unit Dextrose/Sodium Chloride (D5-1/2ns -) 1,000 mls @ 75 mls/hr IV ASDIR [facility] Last Admin: 11/25/17 22:06 Dose: 75 mls/hr Levofloxacin (Levaquin 500 Mg Premixed Ivpb -) 500 mg in 100 mls @ 100 mls/hr IVPB DAILY [facility] Last Admin: 11/26/17 12:02 Dose: Not Given Ondansetron HCl (Zofran Injection) 4 mg IVPUSH Q6H PRN PRN Reason: NAUSEA AND/OR VOMITING - Objective Vital Signs: Vital Signs Temperature 98.6 F 11/26/17 07:30 Pulse Rate 77 11/26/17 07:30 Respiratory Rate 16 11/26/17 07:30 Blood Pressure 112/64 11/26/17 07:30 O2 Sat by Pulse Oximetry (%) 100 11/25/17 20:27 Constitutional: Yes: No Distress, Calm Neck: Yes: Supple Cardiovascular: Yes: Regular Rate and Rhythm Respiratory: Yes: CTA Bilaterally Gastrointestinal: Yes: Normal Bowel Sounds, Soft Genitourinary: Yes: WNL Extremities: Yes: WNL Neurological: Yes: Alert, Oriented Labs: CBC, BMP 11/26/17 06:17 11/26/17 06:17 INR, PTT INR 1.08 (0.82-1.09) 11/24/17 15:12 Microbiology 11/24/17 16:35 Urine - Urine Clean Catch Urine Culture - Preliminary Non Lactose Fermenting Gnb 11/24/17 15:12 Blood - Peripheral Venous Blood Culture - Preliminary NO GROWTH OBTAINED AFTER 24 HOURS, INCUBATION TO CONTINUE FOR 4 DAYS. 11/24/17 15:12 Blood - Peripheral Venous Blood Culture - Preliminary NO GROWTH OBTAINED AFTER 24 HOURS, INCUBATION TO CONTINUE FOR 4 DAYS. Problem List - Problems (1) Elevated CPK Code(s): R74.8 - ABNORMAL LEVELS OF OTHER SERUM ENZYMES (2) Lactate blood increase Code(s): R79.89 - OTHER SPECIFIED ABNORMAL FINDINGS OF BLOOD CHEMISTRY (3) Pre-syncope Code(s): R55 - SYNCOPE AND COLLAPSE Assessment/Plan 46 y.o. female with no significant PMH presenting with c/o generalized weakness , pre-syncope and episode of facial swelling noted to have elevated lactic acid , CPK UTI vs asymptomatic bacteriuria GNB in Urine culture -- discussed findings with pt, still refusing antibiotics at this time -- lactic acid normalized off antibiotics -- undergoing cardiology/neurology evaluation currently appears stable
[2017-11-26] MEDS: DEXTROSE 5%-0.45% SALINE 1,000 ML IV SCH (14:42)
[2017-11-26] MEDS: ATORVASTATIN CA 40 MG TABLET (FP) PO SCH (22:36)
--- NOTE | 2017-11-26 23:00 | PN ---
Progress Note, Physician History of Present Illness: Pt has agreed to IV antibx today after she has been refusing - Current Medication List Current Medications: Active Medications Aspirin (Ecotrin -) 81 mg PO DAILY [facility] Last Admin: 11/26/17 10:13 Dose: 81 mg Atorvastatin Calcium (Lipitor -) 40 mg PO HS [facility] Last Admin: 11/26/17 22:36 Dose: 40 mg Heparin Sodium (Porcine) (Heparin -) 5,000 unit SQ BID [facility] Last Admin: 11/26/17 22:37 Dose: 5,000 unit Dextrose/Sodium Chloride (D5-1/2ns -) 1,000 mls @ 75 mls/hr IV ASDIR [facility] Last Admin: 11/26/17 14:42 Dose: 75 mls/hr Levofloxacin (Levaquin 500 Mg Premixed Ivpb -) 500 mg in 100 mls @ 100 mls/hr IVPB DAILY [facility] Last Admin: 11/26/17 14:35 Dose: 100 mls/hr Ondansetron HCl (Zofran Injection) 4 mg IVPUSH Q6H PRN PRN Reason: NAUSEA AND/OR VOMITING - Objective Vital Signs: Vital Signs Temperature 98.4 F 11/26/17 17:00 Pulse Rate 82 11/26/17 17:00 Respiratory Rate 20 11/26/17 17:00 Blood Pressure 137/79 11/26/17 17:00 O2 Sat by Pulse Oximetry (%) 100 11/26/17 21:00 Constitutional: Yes: No Distress HENT: Yes: WNL Neck: Yes: WNL, Supple Cardiovascular: Yes: WNL, Regular Rate and Rhythm Respiratory: Yes: WNL, Regular, CTA Bilaterally Gastrointestinal: Yes: WNL, Normal Bowel Sounds, Soft Extremities: Yes: WNL Edema: No Labs: CBC, BMP 11/26/17 06:17 11/26/17 06:17 INR, PTT INR 1.08 (0.82-1.09) 11/24/17 15:12 Problem List - Problems (1) Pre-syncope Assessment/Plan: Pt scheduled for echo/stress test in am Cont asa/monitoring Code(s): R55 - SYNCOPE AND COLLAPSE (2) Lactate blood increase Assessment/Plan: Due to UTI COnt IV levaquin/IVF Monitor blood cultures Lactic acid decreased Code(s): R79.89 - OTHER SPECIFIED ABNORMAL FINDINGS OF BLOOD CHEMISTRY (3) HLD (hyperlipidemia) Assessment/Plan: Cont Lipitor Code(s): E78.5 - HYPERLIPIDEMIA, UNSPECIFIED
[2017-11-27] MEDS: HEPARIN NA (PORCINE) 5,000 UNITS/ML 1ML VIAL SQ SCH ×2 (10:49→21:48)
[2017-11-27] MEDS: ASPIRIN COATED 81 MG TABLET.EC PO SCH (10:50)
[2017-11-27] MEDS: LEVOFLOXACIN 500 MG IVPB 500 MG/100 ML BAG IVPB SCH (10:57)
--- NOTE | 2017-11-27 11:27 | PN ---
Progress Note, Physician History of Present Illness: seen and examined today in [facility]. states she is feeling overall better. no overnight events. no new complaints. - Current Medication List Current Medications: Active Medications Aspirin (Ecotrin -) 81 mg PO DAILY [facility] Last Admin: 11/27/17 10:50 Dose: 81 mg Atorvastatin Calcium (Lipitor -) 40 mg PO HS [facility] Last Admin: 11/26/17 22:36 Dose: 40 mg Heparin Sodium (Porcine) (Heparin -) 5,000 unit SQ BID [facility] Last Admin: 11/27/17 10:49 Dose: 5,000 unit Dextrose/Sodium Chloride (D5-1/2ns -) 1,000 mls @ 75 mls/hr IV ASDIR [facility] Last Admin: 11/26/17 14:42 Dose: 75 mls/hr Levofloxacin (Levaquin 500 Mg Premixed Ivpb -) 500 mg in 100 mls @ 100 mls/hr IVPB DAILY [facility] Last Admin: 11/27/17 10:57 Dose: Not Given Ondansetron HCl (Zofran Injection) 4 mg IVPUSH Q6H PRN PRN Reason: NAUSEA AND/OR VOMITING - Objective Vital Signs: Vital Signs Temperature 98.4 F 11/27/17 01:00 Pulse Rate 82 11/27/17 05:00 Respiratory Rate 20 11/27/17 05:00 Blood Pressure 130/81 11/27/17 05:00 O2 Sat by Pulse Oximetry (%) 100 11/26/17 21:00 Constitutional: Yes: Well Nourished, No Distress, Calm Eyes: Yes: WNL, Conjunctiva Clear, EOM Intact, PERRL HENT: Yes: WNL, Atraumatic, Normocephalic Neck: Yes: WNL, Supple, Trachea Midline Cardiovascular: Yes: WNL, Regular Rate and Rhythm, S1, S2. No: Bradycardia, Tachycardia, Pulse Irregular, Bruit, JVD, Gallop, Murmur, Rub, S3, S4, Varicosities Respiratory: Yes: WNL, Regular, CTA Bilaterally. No: Rales, Rhonchi, Wheezes Gastrointestinal: Yes: WNL, Normal Bowel Sounds, Soft. No: Distention, Tenderness Musculoskeletal: Yes: WNL Extremities: Yes: WNL Edema: No Peripheral Pulses WNL: Yes Peripheral Pulses: Left Doralis Pedis: 2+, Right Dorsalis Pedis: 2+ Integumentary: Yes: WNL Neurological: Yes: WNL, Alert, Oriented, Cran Nerves II-XII Intact ...Motor Strength: WNL Psychiatric: Yes: Alert, Oriented Labs: CBC, BMP 11/26/17 06:17 11/26/17 06:17 INR, PTT INR 1.08 (0.82-1.09) 11/24/17 15:12 - ....Imaging Chest X-ray: Report Reviewed, Image Reviewed EKG: Report Reviewed, Image Reviewed Other: Report Reviewed, Image Reviewed (tele-nsr, sinus tach) Assessment/Plan IMP: Near syncope with episodes of sinus bradycardia and sinus tachycardia Elevated lactate of unclear etiology, now improved Elevated CPK, also improving Differential is broad and includes vasovagal episode (unlcear trigger), occult infection (possible UTI), dehydration. Less likely arrhythmia or ischemia. Doubt PE; endocrine etiologies such as thyroid disease and pheo should be ruled out REC: NSR, Sinus tach on tele, no arrhythmias recorded thus far Cont telemetry for now F/up Echo today MRA neck planned to further evaluate mildly elevated doppler velocities on carotid US Follow cultures ETT planned for today
[2017-11-27] MEDS: ACETAMINOPHEN 325 MG TABLET (FP) PO PRN ×2 (11:44→17:19)
[2017-11-27] MEDS: PANTOPRAZOLE 40 MG TABLET (FP) PO SCH (11:44)
--- NOTE | 2017-11-27 13:31 | PN ---
Progress Note, Physician History of Present Illness: patient uncooperative refuses to take any medications i liz spoken to her in detain and explained to her about the need for abx for her uti also i liz spoken to the nursing staff the patient also ahs not allowed the nursing staff to give the medications inspite of my explanation she refuses to take the medications - Current Medication List Current Medications: Active Medications Acetaminophen (Tylenol -) 650 mg PO Q4H PRN PRN Reason: PAIN Last Admin: 11/27/17 11:44 Dose: 650 mg Aspirin (Ecotrin -) 81 mg PO DAILY [facility] Last Admin: 11/27/17 10:50 Dose: 81 mg Atorvastatin Calcium (Lipitor -) 40 mg PO HS [facility] Last Admin: 11/26/17 22:36 Dose: 40 mg Heparin Sodium (Porcine) (Heparin -) 5,000 unit SQ BID [facility] Last Admin: 11/27/17 10:49 Dose: 5,000 unit Dextrose/Sodium Chloride (D5-1/2ns -) 1,000 mls @ 75 mls/hr IV ASDIR [facility] Last Admin: 11/26/17 14:42 Dose: 75 mls/hr Levofloxacin (Levaquin 500 Mg Premixed Ivpb -) 500 mg in 100 mls @ 100 mls/hr IVPB DAILY [facility] Last Admin: 11/27/17 10:57 Dose: Not Given Ondansetron HCl (Zofran Injection) 4 mg IVPUSH Q6H PRN PRN Reason: NAUSEA AND/OR VOMITING Pantoprazole Sodium (Protonix -) 40 mg PO DAILY [facility] Last Admin: 11/27/17 11:44 Dose: 40 mg - Objective Vital Signs: Vital Signs Temperature 98 F 11/27/17 09:00 Pulse Rate 86 11/27/17 09:00 Respiratory Rate 18 11/27/17 09:00 Blood Pressure 118/70 11/27/17 09:00 O2 Sat by Pulse Oximetry (%) 98 11/27/17 09:00 Labs: CBC, BMP 11/26/17 06:17 11/26/17 06:17 INR, PTT INR 1.08 (0.82-1.09) 11/24/17 15:12
--- NOTE | 2017-11-27 14:11 | TRE ---
Protocol Name : DALI Max Work Load (METS*10) : 93 Time In Exercise Phase : 00:07:31 Max. Systolic BP : 158 mmHg Max Diastolic BP : 70 mmHg Max Heart Rate : 157 BPM Max Predicted Heart Rate : 175 BPM Attending Physician : DR. GONZALEZ Reason For Termination : Target Heart Rate Achieved Reason for Test : TAACHY- RIAZ AND PRESYNCOPE Stress Protocol : DALI Rest HR : 93 BPM PeakEx METs : 9.3 METS Arrhythmias : No Arrhythmias Resting ECG : Normal Recovery ECG Response (OLD) : Chest Pain : No Chest Pain HR Response To Exercise : Normal Overall HR Response To Exercise BP Response To Exercise : Normal Resting BP with Appropriate Response Functional Capacity : Normal Diagnosis : 1. ABNORMAL STRESS TEST 2. APPROPRIATE BLOOD PRESSURE RESPONSE. BLOOD PRESSURE INCREASED TO 158/70 MMHG 3. FAIR EXERCISE TOLERANCE AND CAPACITY. PATIENT EXERCISED 7 MIN 31 SEC INTO STAGE 3 DALI PROTOCOL WITH ACHIEVEMENT OF 89% MPTHR 4. 1.0 MM TO 1.5 MM NEAR HORIZONTAL TO UPSLOPING ST DEPRESSION SEEN IN INFERIOR AND LATERAL LEADS Confirmed by CARLOS HANDY, MARY ([id number]) on 11/27/2017 2:10:51 PM
[2017-11-27] MEDS: DEXTROSE 5%-0.45% SALINE 1,000 ML IV SCH (17:18)
--- NOTE | 2017-11-27 19:39 | PN ---
Progress Note (short form) - Note Progress Note: Vascular Surgery Carotid doppler images reviewed. No significant Peak systolic velocities found. No significant stenosis on doppler. Normal doppler. At best 40% stenosis on both sides. Medical management. Hemanth Chadwick DO
--- NOTE | 2017-11-27 20:06 | PN ---
Progress Note, Physician - Current Medication List Current Medications: Active Medications Acetaminophen (Tylenol -) 650 mg PO Q4H PRN PRN Reason: PAIN Last Admin: 11/27/17 17:19 Dose: 650 mg Aspirin (Ecotrin -) 81 mg PO DAILY [facility] Last Admin: 11/27/17 10:50 Dose: 81 mg Atorvastatin Calcium (Lipitor -) 40 mg PO HS [facility] Last Admin: 11/26/17 22:36 Dose: 40 mg Heparin Sodium (Porcine) (Heparin -) 5,000 unit SQ BID [facility] Last Admin: 11/27/17 10:49 Dose: 5,000 unit Dextrose/Sodium Chloride (D5-1/2ns -) 1,000 mls @ 75 mls/hr IV ASDIR [facility] Last Admin: 11/27/17 17:18 Dose: 75 mls/hr Levofloxacin (Levaquin 500 Mg Premixed Ivpb -) 500 mg in 100 mls @ 100 mls/hr IVPB DAILY [facility] Last Admin: 11/27/17 10:57 Dose: Not Given Ondansetron HCl (Zofran Injection) 4 mg IVPUSH Q6H PRN PRN Reason: NAUSEA AND/OR VOMITING Pantoprazole Sodium (Protonix -) 40 mg PO DAILY [facility] Last Admin: 11/27/17 11:44 Dose: 40 mg - Objective Vital Signs: Vital Signs Temperature 98.2 F 11/27/17 18:00 Pulse Rate 85 11/27/17 18:00 Respiratory Rate 19 11/27/17 18:00 Blood Pressure 135/75 11/27/17 18:00 O2 Sat by Pulse Oximetry (%) 98 11/27/17 09:00 Labs: CBC, BMP 11/26/17 06:17 11/26/17 06:17 INR, PTT INR 1.08 (0.82-1.09) 11/24/17 15:12 Problem List - Problems (1) Pre-syncope Code(s): R55 - SYNCOPE AND COLLAPSE (2) Lactate blood increase Code(s): R79.89 - OTHER SPECIFIED ABNORMAL FINDINGS OF BLOOD CHEMISTRY (3) HLD (hyperlipidemia) Code(s): E78.5 - HYPERLIPIDEMIA, UNSPECIFIED
[2017-11-27] MEDS: ATORVASTATIN CA 40 MG TABLET (FP) PO SCH (21:48)
[2017-11-28] MEDS: DEXTROSE 5%-0.45% SALINE 1,000 ML IV SCH (06:21)
[2017-11-28] MEDS: ASPIRIN COATED 81 MG TABLET.EC PO SCH (09:07)
[2017-11-28] MEDS: HEPARIN NA (PORCINE) 5,000 UNITS/ML 1ML VIAL SQ SCH (09:07)
[2017-11-28] MEDS: LEVOFLOXACIN 500 MG IVPB 500 MG/100 ML BAG IVPB SCH (09:07)
[2017-11-28] MEDS: PANTOPRAZOLE 40 MG TABLET (FP) PO SCH (09:07)
--- NOTE | 2017-11-28 09:36 | PN ---
Progress Note, Physician - Current Medication List Current Medications: Active Medications Acetaminophen (Tylenol -) 650 mg PO Q4H PRN PRN Reason: PAIN Last Admin: 11/27/17 17:19 Dose: 650 mg Aspirin (Ecotrin -) 81 mg PO DAILY [facility] Last Admin: 11/28/17 09:07 Dose: Not Given Atorvastatin Calcium (Lipitor -) 40 mg PO HS [facility] Last Admin: 11/27/17 21:48 Dose: 40 mg Heparin Sodium (Porcine) (Heparin -) 5,000 unit SQ BID [facility] Last Admin: 11/28/17 09:07 Dose: Not Given Dextrose/Sodium Chloride (D5-1/2ns -) 1,000 mls @ 75 mls/hr IV ASDIR [facility] Last Admin: 11/28/17 06:21 Dose: Not Given Levofloxacin (Levaquin 500 Mg Premixed Ivpb -) 500 mg in 100 mls @ 100 mls/hr IVPB DAILY [facility] Last Admin: 11/28/17 09:07 Dose: Not Given Ondansetron HCl (Zofran Injection) 4 mg IVPUSH Q6H PRN PRN Reason: NAUSEA AND/OR VOMITING Last Admin: 11/28/17 06:23 Dose: 4 mg Pantoprazole Sodium (Protonix -) 40 mg PO DAILY [facility] Last Admin: 11/28/17 09:07 Dose: Not Given - Objective Vital Signs: Vital Signs Temperature 98 F 11/28/17 02:10 Pulse Rate 75 11/28/17 06:00 Respiratory Rate 18 11/28/17 06:00 Blood Pressure 126/74 11/28/17 06:00 O2 Sat by Pulse Oximetry (%) 99 11/28/17 08:50 Labs: CBC, BMP 11/26/17 06:17 11/26/17 06:17 INR, PTT INR 1.08 (0.82-1.09) 11/24/17 15:12 Microbiology 11/24/17 15:12 Blood - Peripheral Venous Blood Culture - Preliminary NO GROWTH OBTAINED AFTER 72 HOURS, INCUBATION TO CONTINUE FOR 2 DAYS. 11/24/17 15:12 Blood - Peripheral Venous Blood Culture - Preliminary NO GROWTH OBTAINED AFTER 72 HOURS, INCUBATION TO CONTINUE FOR 2 DAYS. Laboratory Tests 11/26/17 11/27/17 06:17 07:00 Lactic Acid 1.4 TSH 1.71 Free T4 1.08 Problem List - Problems (1) Pre-syncope Code(s): R55 - SYNCOPE AND COLLAPSE (2) Lactate blood increase Code(s): R79.89 - OTHER SPECIFIED ABNORMAL FINDINGS OF BLOOD CHEMISTRY (3) Elevated CPK Code(s): R74.8 - ABNORMAL LEVELS OF OTHER SERUM ENZYMES Assessment/Plan Assessment/Plan IMP: Near syncope with episodes of sinus bradycardia and sinus tachycardia Elevated lactate of unclear etiology, now improved Elevated CPK, also improving Differential is broad and includes vasovagal episode (unlcear trigger), occult infection (possible UTI), dehydration. Less likely arrhythmia or ischemia. Doubt PE; endocrine etiologies such as pheo should be evaluated, as outpt REC: NSR, Sinus tach on tele, no arrhythmias recorded thus far Cont telemetry for now Echo normal Carotid US d/w Dr. Chadwick (Vascular), the study is essentially normal. Stress echo planned today to f/u on equivocal ETT
--- NOTE | 2017-11-28 15:13 | PN ---
Progress Note, Physician History of Present Illness: refused abx - Current Medication List Current Medications: Active Medications Acetaminophen (Tylenol -) 650 mg PO Q4H PRN PRN Reason: PAIN Last Admin: 11/27/17 17:19 Dose: 650 mg Aspirin (Ecotrin -) 81 mg PO DAILY [facility] Last Admin: 11/28/17 09:07 Dose: Not Given Atorvastatin Calcium (Lipitor -) 40 mg PO HS [facility] Last Admin: 11/27/17 21:48 Dose: 40 mg Heparin Sodium (Porcine) (Heparin -) 5,000 unit SQ BID [facility] Last Admin: 11/28/17 09:07 Dose: Not Given Dextrose/Sodium Chloride (D5-1/2ns -) 1,000 mls @ 75 mls/hr IV ASDIR [facility] Last Admin: 11/28/17 06:21 Dose: Not Given Levofloxacin (Levaquin 500 Mg Premixed Ivpb -) 500 mg in 100 mls @ 100 mls/hr IVPB DAILY [facility] Last Admin: 11/28/17 09:07 Dose: Not Given Ondansetron HCl (Zofran Injection) 4 mg IVPUSH Q6H PRN PRN Reason: NAUSEA AND/OR VOMITING Last Admin: 11/28/17 06:23 Dose: 4 mg Pantoprazole Sodium (Protonix -) 40 mg PO DAILY [facility] Last Admin: 11/28/17 09:07 Dose: Not Given - Objective Vital Signs: Vital Signs Temperature 98.0 F 11/28/17 09:44 Pulse Rate 76 11/28/17 09:44 Respiratory Rate 18 11/28/17 09:44 Blood Pressure 122/70 11/28/17 09:44 O2 Sat by Pulse Oximetry (%) 99 11/28/17 08:50 Labs: CBC, BMP 11/26/17 06:17 11/26/17 06:17 INR, PTT INR 1.08 (0.82-1.09) 11/24/17 15:12
[2017-11-28 15:56] VITALS: BP 132/85; PULSE 87; TEMP 98.8
== END 2017-11-28 16:59 | disposition home or self-care (01) | DRG 201 ==
LOC: JER 14:33 → JERBED 16:36 → J4W 21:31
PROVIDERS: ADMIT Internal Medicine; ATTEND Internal Medicine
DX: R00.1 Bradycardia, unspecified (principal); R55 Syncope and collapse; E78.5 Hyperlipidemia, unspecified; E86.0 Dehydration; N39.0 Urinary tract infection, site not specified; E87.2 Acidosis
CPT/HCPCS: 36415; 70450-TC; 71045-TC; 80053; 81003; 81015; 82550; 82553; 83605; 84439; 84443; 84484; 84703; 85025; 85610; 85730; 86850; 86900; 86901; 87040; 87086; 87186; 93005; 93010; 93017; 93018; 93306-TC; 93351; 93880-TC; 99285-25; J1644

== ENCOUNTER 2018-01-24 16:20 | Emergency (ER) | payer OTHER ==
[2018-01-24 16:30] VITALS: BMI 26.5
[2018-01-24] MEDS ORDERED: METOCLOPRAMIDE HCL INJECTION 10 MG/2 ML VIAL IVPUSH ONE (17:20)
[2018-01-24] MEDS ORDERED: SODIUM CHLORIDE 0.9% 1000 ML INFUS.BAG IV ONE (17:20)
--- NOTE | 2018-01-24 17:20 | PDOC ---
History of Present Illness - General Chief Complaint: Headache Stated Complaint: HEADACHE Time Seen by Provider: 01/24/18 16:59 - History of Present Illness Initial Comments: 01/24/18 17:23 47yo female presents ambulatory from home for eval of L parietal pham that has been intermittent x months. Pt states she has intermittently taken asa for the pain over the last month. Pt states the PHAM is assoc with nausea, no vomiting or diarrhea. no neck pain. No blurred vision or change in vision. No paresthesias/ weakness. States 6 months ago she had the PHAM and her L side felt numb for about an hour, but that has not happened again since. Pt states she has not seen a doctor for the pain due to lack of insurance. Pt denies f/c. No meningeal signs. No focal weakness. Speaking in full sentences. Pt in NAD. Pmhx: HLD PShx: denies Allergies: nkda Social: denies alcohol, drugs, tobacco Past History - Past Medical History Allergies/Adverse Reactions: Allergies Allergy/AdvReac Type Severity Reaction Status Date / Time No Known Drug Allergies Allergy Verified 01/24/18 16:26 Home Medications: Ambulatory Orders Atorvastatin Ca [Lipitor] 40 mg PO HS #30 tablet 11/28/17 Anemia: No Asthma: Yes Cancer: No Cardiac Disorders: No CVA: No COPD: No CHF: No Dementia: No Diabetes: Yes (? DIABETES) GI Disorders: No Disorders: No HTN: No Hypercholesterolemia: No Liver Disease: No Seizures: No Thyroid Disease: No - Suicide/Smoking/Psychosocial Hx Smoking History: Never smoked Have you smoked in the past 12 months: No Information on smoking cessation initiated: No Hx Alcohol Use: No Drug/Substance Use Hx: No Substance Use Type: None Hx Substance Use Treatment: No Review of Systems - Review of Systems Able to Perform ROS?: Yes Is the patient limited Georgian proficient: No Constitutional: No: Chills, Fever HEENTM: No: Eye Pain, Blurred Vision, Recent change in vision, Nose Congestion, Throat Pain, Throat Swelling Respiratory: No: Cough, Shortness of Breath, SOB at Rest Cardiac (ROS): No: Chest Pain ABD/GI: Yes: Nausea. No: Diarrhea, Vomiting, Abdominal cramping : No: Burning, Dysuria Musculoskeletal: No: Back Pain, Neck Pain Integumentary: No: Rash Neurological: Yes: Headache. No: Numbness, Paresthesia, Tingling, Weakness, Unsteady Gait, Ataxia, Dizziness All Other Systems: Reviewed and Negative *Physical Exam - Vital Signs Last Vital Signs Temp Pulse Resp BP Pulse Ox 98.1 F 90 19 162/89 100 01/24/18 16:24 01/24/18 16:24 01/24/18 16:24 01/24/18 16:24 01/24/18 16:24 - Physical Exam General Appearance: Yes: Nourished, Appropriately Dressed. No: Apparent Distress HEENT: positive: EOMI, DRE, Normal ENT Inspection, Pharynx Normal. negative: Rhinorrhea, Sinus Tenderness Neck: positive: Trachea midline, Supple. negative: Tender, Rigid Respiratory/Chest: positive: Lungs Clear, Normal Breath Sounds. negative: Respiratory Distress Cardiovascular: positive: Regular Rhythm, Regular Rate, S1, S2. negative: Edema Gastrointestinal/Abdominal: positive: Flat, Soft. negative: Guarding, Rebound Lymphatic: negative: Adenopathy Musculoskeletal: positive: Normal Inspection Extremity: positive: Normal Capillary Refill, Normal Inspection, Normal Range of Motion. negative: Calf Tenderness Integumentary: positive: Normal Color, Dry, Warm, Other (no rash to scalp, scalp and hair is TTP). negative: Rash Neurologic: positive: commercial insulator II-XII NML intact, Fully Oriented, Alert, Normal Mood/ Affect, Normal Response, Motor Strength 5/5. negative: Sensory Deficit ED Treatment Course - LABORATORY CBC & Chemistry Diagram: 01/24/18 17:30 01/24/18 17:30 Medical Decision Making - Medical Decision Making 01/24/18 17:32 a/p: 47yo female with intermittent pham x weeks -suspect cephalgia, no trauma hx, doubt SAH given story, gradual onset of pham, normal neuro -will check labs, head ct given freq and duration of pham -will give reglan, ivf hydration for nausea and pham -will give tylenol -if pham persists and head ct negative, will add toradol -ucg -will monitor and reassess 01/24/18 19:45 labs reviewed pt currently menstruating head ct reviewed - no acute findings re-eval: pt states pain resolved. no discomfort at this time. stable for d/c to home. Discussed all reasons to return to the ED. discussed tylenol or motrin for pain at home. Discussed she should see a neurologist if the pain continues. Discussed follow up with her PMD. Answered all questions. *DC/Admit/Observation/Transfer Diagnosis at time of Disposition: Scalp pain, Cephalgia - Discharge Dispostion Disposition: HOME Condition at time of disposition: Stable Admit: No - Referrals Referrals: Master Andujar MD [Primary Care Provider] - Emmett Piña MD [Staff Physician] - - Patient Instructions Printed Discharge Instructions: DI for Headache Additional Instructions: Please make an appointment to see your PMD in 2-3 days. Please make an appointment to see the neurologist if the pain continues. Please take tylenol or motrin for pain. Please return to the ED with any further complaints. - Post Discharge Activity
[2018-01-24] MEDS ORDERED: ACETAMINOPHEN 325 MG TABLET (FP) PO ONE (17:21)
[2018-01-24] MEDS ORDERED: METOCLOPRAMIDE HCL INJECTION 10 MG/2 ML VIAL ONE (17:25)
[2018-01-24] MEDS ORDERED: ACETAMINOPHEN 325 MG TABLET (FP) ONE (17:25)
[2018-01-24 17:47] LABS: BASO % 0.9 % (0-2.0); EOS % 2.3 % (0-4.5); HEMATOCRIT 34.3 % (32.4-45.2); HEMOGLOBIN 11.5 GM/dL (10.7-15.3); LYMPH % 24.7 % (8-40); MCH 28.5 pg (25.7-33.7); MCHC 33.6 g/dl (32.0-36.0); MEAN PLT VOLUME 9.1 fl (7.5-11.1); MONO % 6.4 % (3.8-10.2); NEUT % 65.7 % (42.8-82.8); PLATELET COUNT 370 K/MM3 (134-434); RBC 4.04 M/mm3 (3.60-5.2); RDW 15.8 % (11.6-15.6); WHITE BLOOD COUNT 7.8 K/mm3 (4.0-10.0)
[2018-01-24 17:56] LABS: HCG,QUALITATIVE URINE NEGATIVE
[2018-01-24 17:58] LABS: URINE APPEARANCE SLCLOUDY; URINE BILIRUBIN NEGATIVE (NEGATIVE); URINE BLOOD 3+ (NEGATIVE); URINE COLOR LTYELLOW; URINE GLUCOSE (UA) NEGATIVE (NEGATIVE); URINE KETONE NEGATIVE (NEGATIVE); URINE LEUK ESTERASE NEGATIVE (NEGATIVE); URINE NITRITE NEGATIVE (NEGATIVE); URINE PROTEIN NEGATIVE (NEGATIVE); URINE UROBILINOGEN NEGATIVE mg/dL (0.2-1.0)
[2018-01-24 18:09] LABS: INR 1.06 (0.82-1.09)
[2018-01-24 18:10] LABS: ALBUMIN 3.9 g/dl (3.4-5.0); ANION GAP 9 (8-16); BILIRUBIN,TOTAL 0.2 mg/dL (0.2-1.0); BLOOD UREA NITROGEN 14 mg/dL (7-18); CALCIUM 8.4 mg/dL (8.5-10.1); CHLORIDE 107 mmol/L (98-107); CO2 25 mmol/L (21-32); CREATININE 0.7 mg/dL (0.55-1.02); GLUCOSE,RANDOM 91 mg/dL (74-106); POTASSIUM 3.6 mmol/L (3.5-5.1); SGOT/AST 9 U/L (15-37); SGPT/ALT 13 U/L (12-78); SODIUM 141 mmol/L (136-145); TOT PROT 7.4 g/dl (6.4-8.2)
[2018-01-24 18:11] LABS: ACTIVATED PTT 30.3 SECONDS (26.9-34.4); ALK PHOS 76 U/L (45-117)
[2018-01-24 19:18] LABS: EPI CELLS RARE /HPF (FEW); URINE MUCUS RARE
[2018-01-24 20:14] VITALS: BP 138/89; PULSE 72; TEMP 98.2
== END 2018-01-24 20:15 | disposition home or self-care (01) ==
LOC: JER 16:20
PROC: 3E033GC Introduction of Other Therapeutic Substance into Peripheral Vein, Percutaneous Approach (ICD-10-PCS; principal; 2018-01-24)
PROC: 3E0337Z Introduction of Electrolytic and Water Balance Substance into Peripheral Vein, Percutaneous Approach (ICD-10-PCS; 2018-01-24)
DX: R51 Headache (principal)
CPT/HCPCS: 36415; 70450-TC; 80053; 81003; 81015; 84703; 85025; 85610; 85730; 99283-25

== ENCOUNTER → 2024-03-20 | Day surgery (SDC) | payer OTHER | END | disposition home or self-care (01) | LOC: JRADUS-SUR 12:46 | PROVIDERS: ATTEND Surgery | PROC: 0H9U3ZZ Drainage of Left Breast, Percutaneous Approach (ICD-10-PCS; principal; 2024-03-20) | DX: N60.02 Solitary cyst of left breast (principal) | CPT/HCPCS: 19000; 76942-TC; 87899; 88173; 88305-TC ==

== ENCOUNTER 2024-10-10 09:18 | Inpatient (IN) | payer OTHER ==
[2024-10-10] MEDS ORDERED: ONDANSETRON 4 MG/2 ML VIAL ONE ×2 (10:17→10:20)
[2024-10-10] MEDS ORDERED: morphine SULFATE 4 MG/ML VIAL ONE (10:17)
[2024-10-10] MEDS: morphine CARPU-JECT 4 MG/1 ML DISP.SYRIN IVPUSH ONE (10:24)
[2024-10-10] MEDS: ONDANSETRON 4 MG/2 ML VIAL IVPUSH ONE (10:26)
[2024-10-10] MEDS: SODIUM CHLORIDE 1,000 ML IV STA (10:34)
[2024-10-10] MEDS ORDERED: FENTANYL CITRATE/PF 50 MCG/ML VIAL ONE ×2 (11:09→13:28)
[2024-10-10 11:13] LABS: POTASSIUM 3.9 mmol/L (3.5-5.1)
[2024-10-10 11:15] LABS: ALBUMIN 3.8 g/dl (3.4-5.0); CALCIUM 9.2 mg/dL (8.5-10.1)
[2024-10-10 11:18] LABS: CREATININE 0.8 mg/dL (0.55-1.3)
[2024-10-10 11:20] LABS: BILIRUBIN,TOTAL 0.4 mg/dL (0.2-1); TOT PROT 7.3 g/dl (6.4-8.2)
[2024-10-10 11:27] LABS: EPI CELLS 9 /uL (0-25.1); HYALINE CASTS 0 /uL (0-3.1); PH,URINE 7.5 (5.0-8.0); URINE APPEARANCE CLOUDY; URINE BACTERIA 238 /uL (0-1359); URINE BILIRUBIN NEGATIVE (NEGATIVE); URINE COLOR YELLOW; URINE GLUCOSE (UA) NEGATIVE (NEGATIVE); URINE KETONE TRACE (NEGATIVE); URINE LEUK ESTERASE NEGATIVE (NEGATIVE); URINE NITRITE NEGATIVE (NEGATIVE); URINE PROTEIN NEGATIVE (NEGATIVE); URINE RBC 59 /uL (0-23.9); URINE UROBILINOGEN 0.2 mg/dL (0.2-1.0); URINE WBC 10 /uL (0-25.8)
[2024-10-10 13:07] LABS: HIV INTERPRETATION NEGATIVE (NEGATIVE)
[2024-10-10 13:31] LABS: HEMATOCRIT 39.3 % (32.4-45.2); HEMOGLOBIN 12.8 GM/dL (10.7-15.3); MCH 29.7 pg (25.7-33.7); MCHC 32.7 g/dl (32.0-36.0); MEAN CELL VOLUME 90.9 fl (80-96); MEAN PLT VOLUME 9.6 fl (7.5-11.1); PLATELET COUNT 277 10^3/uL (134-434); RBC 4.32 M/mm3 (3.60-5.2); WHITE BLOOD COUNT 16.3 K/mm3 (4.0-10.0)
[2024-10-10] MEDS: fentaNYL CITRATE 250 MCG/5 ML VIAL IVPUSH ONE (13:31)
[2024-10-10 15:16] LABS: ANISOCYTOSIS 0; MACROCYTOSIS 0
[2024-10-10] MEDS ORDERED: cefTRIAXone SODIUM 1 GM VIAL ONE (15:46)
[2024-10-10] MEDS ORDERED: CEFTRIAXONE 1 G/50 ML PREMIX 50 ML IVPB ONE (15:46)
[2024-10-10] MEDS: CEFTRIAXONE 1,000 MG in DEXTROSE 5%-WATER - 50 ML IVPB ONE (15:56)
[2024-10-10 17:01] VITALS: BMI 26.5
[2024-10-10] MEDS ORDERED: ACETAMINOPHEN 325 MG TABLET (FP) PO PRN (17:01)
[2024-10-10] MEDS: ONDANSETRON 4 MG/2 ML VIAL IVPB PRN (17:19)
[2024-10-10] MEDS: SODIUM CHLORIDE 1,000 ML IV SCH (17:19)
[2024-10-10] MEDS: ACETAMINOPHEN 1000 MG/100 ML BAG IVPB PRN (17:45)
[2024-10-11] MEDS: amLODIPine BESYLATE 5 MG TABLET (FP) PO SCH (11:25)
[2024-10-11] MEDS: CEFTRIAXONE 1 G/50 ML PREMIX 50 ML IVPB SCH (15:13)
[2024-10-12] MEDS: ACETAMINOPHEN 1000 MG/100 ML BAG IVPB ONE ×2 (00:18→06:59)
[2024-10-12 07:46] LABS: BASO % 0.3 % (0-2.0); EOS % 1.4 % (0-4.5); HEMATOCRIT 35.1 % (32.4-45.2); HEMOGLOBIN 11.7 GM/dL (10.7-15.3); LYMPH % 6.8 % (8-40); MCH 29.9 pg (25.7-33.7); MCHC 33.2 g/dl (32.0-36.0); MEAN CELL VOLUME 90.1 fl (80-96); MEAN PLT VOLUME 9.9 fl (7.5-11.1); MONO % 5.9 % (3.8-10.2); NEUT % 85.6 % (42.8-82.8); PLATELET COUNT 204 10^3/uL (134-434); RDW 15.5 % (11.6-15.6); WHITE BLOOD COUNT 11.8 K/mm3 (4.0-10.0)
[2024-10-12 08:07] LABS: POTASSIUM 3.6 mmol/L (3.5-5.1)
[2024-10-12 08:09] LABS: CALCIUM 8.5 mg/dL (8.5-10.1)
[2024-10-12] MEDS ORDERED: ceFAZolin SODIUM 1 GM VIAL ONE (08:09)
[2024-10-12] MEDS ORDERED: PROPOFOL 20 ML ONE (08:09)
[2024-10-12] MEDS ORDERED: DEXAMETHASONE SOD PHOSPHATE 4 MG/1 ML VIAL ONE (08:09)
[2024-10-12] MEDS ORDERED: KETOROLAC TROMETHAMINE 30 MG/1 ML VIAL ONE (08:09)
[2024-10-12] MEDS ORDERED: LIDOCAINE HCL/PF 2% SDV 5ML VIAL ONE (08:09)
[2024-10-12] MEDS ORDERED: ONDANSETRON 4 MG/2 ML VIAL ONE (08:09)
[2024-10-12 08:10] LABS: ALBUMIN 2.9 g/dl (3.4-5.0); BLOOD UREA NITROGEN 21.7 mg/dL (7-18)
[2024-10-12] MEDS ORDERED: SODIUM CHLORIDE 0.9% P/F 10 ML VIAL IJ ONE (08:12)
[2024-10-12 08:13] LABS: CREATININE 0.9 mg/dL (0.55-1.3)
[2024-10-12 08:14] LABS: BILIRUBIN,TOTAL 0.4 mg/dL (0.2-1); TOT PROT 5.9 g/dl (6.4-8.2)
[2024-10-12] MEDS ORDERED: ONDANSETRON 4 MG/2 ML VIAL IVPUSH PRN (08:30)
[2024-10-12] MEDS ORDERED: LACTATED RINGERS SOLUTION 1,000 ML IV SCH (08:30)
[2024-10-12] MEDS ORDERED: GENTAMICIN SO4 80 MG/2 ML VIAL ONE (08:36)
[2024-10-12] MEDS: GENTAMICIN SO4 80 MG/2 ML VIAL IVPB ONE (08:45)
[2024-10-12] MEDS ORDERED: ONDANSETRON 4 MG/2 ML VIAL IVPB PRN (09:54)
[2024-10-12] MEDS ORDERED: amLODIPine BESYLATE 5 MG TABLET (FP) PO SCH (10:00)
[2024-10-12] MEDS: SODIUM CHLORIDE 1,000 ML IV SCH (10:05)
[2024-10-12] MEDS: amLODIPine BESYLATE 5 MG TABLET (FP) PO SCH (11:08)
[2024-10-12] MEDS: CEFTRIAXONE 1 G/50 ML PREMIX 50 ML IVPB SCH (11:08)
[2024-10-12 12:43] VITALS: RESP 18
[2024-10-12 16:01] VITALS: BP 110/68; PULSE 80; TEMP 98.2
== END 2024-10-12 17:09 | disposition home or self-care (01) | DRG 446 ==
LOC: JER 09:18 → JERBED 15:23 → J8W 16:38
PROVIDERS: ADMIT Internal Medicine; ATTEND Internal Medicine
PROC: BT1FYZZ Fluoroscopy of Left Kidney, Ureter and Bladder using Other Contrast (ICD-10-PCS; 2024-10-12)
PROC: 0TC78ZZ Extirpation of Matter from Left Ureter, Via Natural or Artificial Opening Endoscopic (ICD-10-PCS; principal; 2024-10-12 08:00)
PROC: 0T778DZ Dilation of Left Ureter with Intraluminal Device, Via Natural or Artificial Opening Endoscopic (ICD-10-PCS; 2024-10-12 08:00)
DX: N13.6 Pyonephrosis (principal); I10 Essential (primary) hypertension; R10.32 Left lower quadrant pain
CPT/HCPCS: 36415; 74176-TC; 76000-TC-FY; 76830-TC; 80053; 81003; 82360; 84703; 85025; 86803; 87086; 87186; 87389; 88300-TC; 94760; 99285-25; C2617; J0131